=== PATIENT | male | born 1960 | race Caucasian/White ===

== ENCOUNTER 2017-01-11 07:30 | Observation (INO) ==
[2017-01-11] MEDS ORDERED: Ondansetron 4 MG/2 ML VIAL IVP PRN (11:55)
[2017-01-11] MEDS ORDERED: *HR* Promethazine 25 MG/ML VIAL IVP PRN (11:55)
--- NOTE | 2017-01-11 12:30 | General Surg History&Physical ---
Date of Encounter: 01/11/17 Time of Encounter: 12:20 Assessment and Plan (1) Symptomatic cholelithiasis Current Visit: Yes Status: Acute The assessment and plan as outlined above was discussed with the patient and/or family members who expressed understanding and agreement. All questions were answered. discussed with patient CT and lab results. His symptoms are consistent with symptomatic cholelithiasis. Will plan laparoscopic cholecystectomy with possible cholagiograms possible open risks and benefits discussed and he wishes to proceed. clears today, npo midnight cefoxitin morphine for pain control gi/dvt prophylaxis prn antihypertensives and antiemetics ivf hydration (2) Umbilical hernia without obstruction and without gangrene Current Visit: Yes Status: Acute The assessment and plan as outlined above was discussed with the patient and/or family members who expressed understanding and agreement. All questions were answered. discussed with patient he has an umbilical hernia, he is aware, will plan primary repair umbilical hernia, risks and benefits discussed including recurrence (3) Elevated liver enzymes Current Visit: Yes Status: Acute The assessment and plan as outlined above was discussed with the patient and/or family members who expressed understanding and agreement. All questions were answered. will repeat enzymes in am History of Present Illness Chief complaint: abdominal pain HPI: Mr. Galvan is a 56 year old male with a month and half epigastric pain, sharp and intermittent. Denies heartburn or reflux. Yesterday evening as patient went to bed he had sharp epigastric pain and nausea. No emesis. The pain became unbearable this morning and he presented to [place] [facility] where a CT scan was done showing gallstones and perhaps mild pericholecystic fluid. WBC normal but T bili 1.5 and ast/alt and alk phos were elevated as well. He denies diarrhea. Pain is improved with morphine. 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) Psychiatric history: anxiety, depression - Past Surgical History Surgical History: arthroscopy ( bilateral knees), orthopedic, other (right rotator cuff repair), other (PEG (removed), left neck lymph node biopsy, left tonsillectomy) - Social History Smoking Status: Never smoker Smokeless Tobacco Status: No Alcohol use: none Drug use: none Current living situation: Home - Independent, With Family - Family History Father Living Status: Hx Family Cardiac Disorders: Yes (OK) Hx Family Cancer: Yes (prostate & "back melanoma") Hx Family Endocrine Disorder: Yes (diabetic) Hx Family Medical Disorders: Yes (hepatitis C) Mother Living Status: Hx Family Cancer: Yes (lung) Medications and Allergies Meloxicam [Mobic] 15 mg PO DAILY #15 tablet 05/06/16 [Rx] Allergies Hydromorphone [From Dilaudid] Adverse Reaction (Verified 05/06/16 10:46) Itching Review of Systems All systems PM: reviewed and no additional remarkable complaints except as stated All systems PM: A 10-system review of systems was performed and is negative for pertinent findings except as documented above in the HPI. General Surgery Exam Initial Vital Signs Temp Pulse Resp BP Pulse Ox 97.6 F 68 17 157/91 95 01/11/17 09:10 01/11/17 09:10 01/11/17 09:10 01/11/17 09:10 01/11/17 09:10 - General physical appearance well developed, well nourished, no distress, moderate pain - Eyes PERRL, normal ocular movement - ENT normal mucosa, atraumatic, normocephalic - Neck trachea midline - Respiratory normal expansion, clear to auscultation - Cardiovascular Cardiovascular exam: Present: RRR, no murmurs/rubs/gallops - Abdomen Abdomen general surgery: Present: bowel sounds present, soft, tender ( epigastric and RUQ, no rebound or guarding, peg site scare LUQ) - Integumentary Integumentary general surgery: Present: warm and dry, no abnormal pigmentation - Neurologic Present: CN 2-12 grossly intact, normal coordination, normal sensation - Musculoskeletal Present: normal posture - Psychiatric Psychiatric general surgery: Present: A&Ox3, speech is normal Results - Labs labs reviewed from [place]: CBC, BMP, LFTs Vital Signs Temp Pulse Resp BP Pulse Ox 01/11/17 11:18 97.8 F 68 16 147/83 99 01/11/17 09:10 97.6 F 68 17 157/91 95 Intake and Output 01/10/17 01/11/17 01/11/17 23:59 07:59 15:59 Other: Weight 88.451 kg Patient Weight 01/11/17 23:59 Weight 88.451 kg - Imaging CT scan - abdomen: report reviewed, image reviewed CT scan - pelvis: report reviewed, image reviewed
[2017-01-11] MEDS: 0.9 % Sodium Chloride 1,000 ML IVC SCH ×2 (12:31→23:34)
[2017-01-11] MEDS: *HR* Morphine 2 MG/ML SYRINGE IVP PRN ×2 (14:58→21:32)
[2017-01-11] MEDS: ceFAZolin 2,000 MG in D5% in Water 100 ML IVPB SCH ×2 (15:02→23:36)
[2017-01-12] MEDS: *HR* Morphine 2 MG/ML SYRINGE IVP PRN ×6 (03:00→21:02)
[2017-01-12 04:28] LABS: Basophils % 0.3 %; Eosinophils # 0.1 K/mcL (0.0-0.6); Eosinophils % 3.4 %; Hematocrit 33.6 % (37.5-50.1); Hemoglobin 11.9 g/dL (12.9-16.9); Immature Granulocytes % 0.3 % (0-4); Lymphocytes # 0.8 K/mcL (0.6-4.6); Lymphocytes % 20.1 %; Mean Corpuscular HGB Conc 35.4 g/dL (31.6-35.5); Mean Corpuscular Hemoglobin 31.6 pg (28.0-33.3); Mean Corpuscular Volume 89.4 fL (83.0-100.0); Monocytes # 0.4 K/mcL (0.0-1.3); Monocytes % 9.4 %; Neutrophils # 2.6 K/mcL (1.6-8.9); Platelet Count 139 K/mcL (140-400); Red Blood Count 3.76 M/mcL (4.19-5.50); Red Cell Distribution Width 13.2 % (11.5-14.5); Segmented Neutrophils % 66.5 %
[2017-01-12 04:48] LABS: Alanine Aminotransferase 127 Units/L (0-55); Albumin 3.4 g/dL (3.5-5.0); Albumin/Globulin Ratio 1.2 (1.1-2.2); Alkaline Phosphatase 124 Units/L (38-126); Aspartate Amino Transferase 60 Units/L (5-34); BUN/Creatinine Ratio 13 (6-26); Bilirubin,Direct 0.4 mg/dL (0.0-0.5); Bilirubin,Indirect 0.7 mg/dL (0.0-1.2); Bilirubin,Total 1.1 mg/dL (0.2-1.2); Blood Urea Nitrogen 15 mg/dL (8-26); Calcium 8.4 mg/dL (8.6-10.8); Carbon Dioxide 25 mEq/L (19-29); Chloride 106 mEq/L (98-109); Globulin 2.8 g/dL (2.4-3.5); Glucose 91 mg/dL (70-99); Osmolality,Calculated 288 (280-300); Phosphorous 3.8 mg/dL (2.3-4.7); Potassium 3.8 mEq/L (3.5-4.5); Sodium 139 mEq/L (136-145); Total Protein 6.2 g/dL (6.0-8.3); eGFR For African Americans > 60 (> 60); eGFR For Non-African Americans > 60 (> 60)
[2017-01-12] MEDS: *HR* LORazepam 2 MG/ML VIAL IVP PRN ×2 (08:34→18:54)
[2017-01-12] MEDS ORDERED: Pantoprazole 40 MG VIAL IVP SCH (09:00)
--- NOTE | 2017-01-12 11:52 | Anesthesia Evaluation PreOp ---
Date of Encounter: 01/12/17 Time of Encounter: 15:27 - Past History Planned Operation: lap anne Cardiac History: Denies any Significant Hx Pulmonary History: Denies Any Significant HX [employer] History: Denies Any Significant HX Other Medical History: Other (left tonsillar squamous cell cancer with mets to left neck dx 2014) Anesthesia History: No Prior Anesthetic Complications, Past Anesthesia (Left tonsil and left lymph node dissection, bilateral AKS, RCR on right) Alcohol Use: none Drug use: none Medications and Allergies Atorvastatin [Lipitor] 10 mg PO HS 01/11/17 [History] Ciclopirox/Skin Cleanser No.28 [Ciclodan 0.77% Cream Kit] 1 appl TP BID [History] Allergies Hydromorphone [From Dilaudid] Adverse Reaction (Verified 01/11/17 13:52) Itching - Meds/Allergy Pre-op Review Medications Reviewed: Yes Allergies Reviewed: Yes (Dilaudid) Beta Blockers on Current Med List: No Anesthesia Results - Labs 01/12/17 02:54 01/12/17 02:54 Anesthesia Exam Selected Entries 01/12/17 10:50 Temperature 97.8 F Pulse Rate 68 Respiratory Rate 16 Blood Pressure 138/79 O2 Sat by Pulse Oximetry 98 Weight: 88 kg NPO (# of Hours): 8 - HEENT Pupil (Motor): EOMI Mallampati: II Teeth: Normal Oral Opening: Greater than 3 (left neck is scarred and fixed from XRT. Good ROM of Cervical spine) - [employer] LOC: Oriented [employer] Motor: Normal RUE, Normal LUE, Normal RLE, Normal LLE, Normal Face [employer] Sensory: Normal: RUE, LUE, RLE, LLE, Face - Cardiac Rhythm: Regular Murmur: None - Pulmonary Breath Sounds: bilateral Clear Respiratory Effort: Symmetrical Anesthesia Assess/Plan ASA Score: 3 Modified Bony Scale for Level of Consciousness: Cooperative, oriented, and tranquil Anesthetic Plan: General Monitoring Plan: Standard Monitors Recovery Plan: PACU (Discussed risks of GA, questions answered and agrees to proceed)
[2017-01-12] MEDS ORDERED: *HR* Midazolam HCl 2 MG/2 ML VIAL ONE (16:26)
[2017-01-12] MEDS ORDERED: Lidocaine -MPF 2% 2 ML VIAL ONE (16:26)
[2017-01-12] MEDS ORDERED: *HR* FentaNYL (PF) 100 MCG/2 ML VIAL ONE ×2 (16:26→16:32)
[2017-01-12] MEDS ORDERED: *HR* Propofol 200 MG/20 ML VIAL IVP ONE (16:26)
[2017-01-12] MEDS ORDERED: *HR* Succinylcholine 200 MG/10 ML VIAL IVP ONE (16:26)
[2017-01-12] MEDS ORDERED: Ondansetron 4 MG/2 ML VIAL IVP ONE (16:46)
--- NOTE | 2017-01-12 17:13 | Operative Note ---
Date of procedure: 01/12/17 Pre-op diagnosis: symptomatic cholelithiasis. umbilical hernia Post-op diagnosis: other (acute cholecystitis, incarcerated umbilical hernia) Procedure: Primary repair incarcerated umbilical hernia, laparoscopic cholecystectomy Complications: none immediate Anesthesia: GETA, local Local Anesthetics: 0.5% Sensorcaine HCL SubQ (cc) (30) Surgeon: Anne Farias Top Dyeing Machine Loader: Neeru Fuentes Estimated blood loss (cc): 5 Specimen: gallbladder and contents Condition: stable Disposition: PACU Procedure in Detail: The patient was brought into the operating suite and placed supine on the operating table. Sign-in was performed and everyone was in agreement. Anesthesia was induced and patient was endotracheally intubated by anesthesia without incident and they also placed an OG tube. The abdomen was prepped and draped in the usual sterile fashion. A timeout was performed again everyone was in agreement. An umbilical incision was made through the skin into the subcutaneous tissue with an 11 blade. Towel clamps were placed on either side of the umbilicus for retraction. The incarcerated preperitoneal fat was dissected free from the fascia with gentle blunt dissection and the herniated fat was reduced into the abdomen. A regis was placed throught the fascia and entered the abdomen easily. The 5mm X-josefina trocar was placed into the abdomen and insufflation commenced and the abdomen was insufflated. The area under entry was visualized was no bleeding and no apparent bowel injury. A 5 mm subxiphoid port was placed under direct visualization after first incising the skin with an 11 blade. A right upper quadrant subcostal position midclavicular line 5 mm port was placed under direct visualization after first incising skin with 11 blade. The laparoscope was placed in this and we exchanged the supraumbilical port for a 12 mm port under direct visualization. The last 5 mm port was placed in the right upper quadrant subcostal position anterior axillary line after first incising the skin with an 11 blade. The patient was placed in steep reverse Trendelenburg left side down position. The dome of the gallbladder was grasped and retracted cephalad. Omental adhesions to the body and infundibulum of the gallbladder were taken down bluntly with the [place]. The infundibulum was grasped and retracted laterally. Using the [place] we dissected out the cystic duct and cystic artery. There was some bleeding from the crossing vessel from the duct to the artery which was stopped with application of the cystic duct clip. Three 5 mm hemoclips were placed distally on the cystic duct one proximally and it was transected with curved scissors. The cystic artery was doubly clipped proximally, once distally and transected with curved scissors. The gallbladder was removed off the cystic plate with the Bovie. Any bleeding points were stopped with the Bovie. The gallbladder was placed in a laparoscopic Endo Catch bag and removed via the supraumbilical incision site. The inferior edge of the liver was bluntly retracted cephalad and the cystic plate was copiously irrigated with sterile saline. There was no bleeding or apparent bile leak from the cystic plate and the clips on the cystic artery and duct were intact. All irrigation was suctioned free from the abdomen. All insufflation was suctioned free from the abdomen and the ports removed. The abdominal wall at the umbilical incision/hernia site was closed with two 0 Vicryl [id number] stitches. 30 mL of 0.5% Marcaine was injected subcutaneously at the 4 port sites. The skin at the three 5 mm port sites were closed with 4-0 Monocryl interrupted subcuticular stitches. The skin at the supraumbilical incision site was closed with a 4-0 Monocryl running subcuticular stitch. Steri-Strips were applied to all wounds. The patient was awoken in the operating suite having tolerated the procedure well and were taken to PACU in stable condition after all lap and ensuring counts were correct at the end of the case.
--- NOTE | 2017-01-12 18:09 | Anesthesia Evaluation Post Op ---
Date of Encounter: 01/12/17 Time of Encounter: 18:08 - Vital Signs Vital Signs: Vital Signs/O2 Sat, Most Current Temp Pulse Resp BP Pulse Ox 98.1 F 71 16 160/82 100 01/12/17 17:50 01/12/17 18:00 01/12/17 18:00 01/12/17 18:00 01/12/17 18:00 - Lungs Lungs: Clear Ascult./Percussion - Airway Airway: Non-obstructed - Cardiovascular Regular Rate - Mental Status Mental Status: Alert & Oriented, Answers Appropriately - Pain Pain Scale: 6 Pain Scale used: Numeric (1 - 10) - Nausea Vomiting Nausea Vomiting: Not Present - Hydration Hydration: Tolerates oral liquids, Has not voided - Discharge PostOp Status: Transfer Patient to floor
[2017-01-12] MEDS ORDERED: Ondansetron 4 MG/2 ML VIAL IVP PRN (19:03)
[2017-01-12] MEDS ORDERED: *HR* OxyCODONE/APAP 5/325 TABLET PO PRN (19:03)
[2017-01-12] MEDS ORDERED: *HR* Promethazine 25 MG/ML VIAL IVP PRN (19:03)
[2017-01-12] MEDS ORDERED: 0.9 % Sodium Chloride 1,000 ML IVC SCH (19:03)
[2017-01-12] MEDS ORDERED: *HR* LORazepam 2 MG/ML VIAL IVP PRN (19:03)
[2017-01-12] MEDS: 0.9 % Sodium Chloride 1,000 ML IVC SCH ×2 (19:29→19:30)
[2017-01-13] MEDS: *HR* Morphine 2 MG/ML SYRINGE IVP PRN (01:05)
[2017-01-13 05:04] LABS: Basophils % 0.2 %; Hematocrit 33.1 % (37.5-50.1); Hemoglobin 11.9 g/dL (12.9-16.9); Immature Granulocytes % 0.3 % (0-4); Lymphocytes # 0.5 K/mcL (0.6-4.6); Lymphocytes % 9.3 %; Mean Corpuscular Hemoglobin 31.5 pg (28.0-33.3); Mean Corpuscular Volume 87.6 fL (83.0-100.0); Monocytes # 0.4 K/mcL (0.0-1.3); Neutrophils # 4.9 K/mcL (1.6-8.9); Platelet Count 143 K/mcL (140-400); Red Blood Count 3.78 M/mcL (4.19-5.50); Red Cell Distribution Width 12.7 % (11.5-14.5); Segmented Neutrophils % 84.2 %
[2017-01-13 05:13] LABS: Albumin 3.3 g/dL (3.5-5.0); Albumin/Globulin Ratio 1.1 (1.1-2.2); Bilirubin,Direct 0.4 mg/dL (0.0-0.5); Bilirubin,Indirect 0.7 mg/dL (0.0-1.2); Bilirubin,Total 1.1 mg/dL (0.2-1.2); Total Protein 6.3 g/dL (6.0-8.3)
[2017-01-13] MEDS ORDERED: Pantoprazole 40 MG VIAL IVP SCH (07:30)
--- NOTE | 2017-01-13 07:33 | Discharge Summary ---
Date of Encounter: 01/13/17 Time of Encounter: 07:32 - Discharge Diagnosis (1) Symptomatic cholelithiasis Priority: Primary Status: Acute (2) Umbilical hernia without obstruction and without gangrene Priority: Primary Status: Acute (3) Elevated liver enzymes Priority: Primary Status: Acute - Discharge Medications Prescriptions: OxyCODONE/APAP 5/325 [Percocet 5/325 MG] 1 each PO Q4HR PRN #30 tablet PRN Reason: Pain Ibuprofen 800 mg PO Q8HR PRN #30 tablet PRN Reason: Pain Docusate [Colace] 100 mg PO BID #20 capsule Home Medications: Atorvastatin [Lipitor] 10 mg PO HS 01/11/17 [History] Ciclopirox/Skin Cleanser No.28 [Ciclodan 0.77% Cream Kit] 1 appl TP BID [History] Docusate [Colace] 100 mg PO BID #20 capsule 01/13/17 [Rx] Ibuprofen 800 mg PO Q8HR PRN #30 tablet 01/13/17 [Rx] OxyCODONE/APAP 5/325 [Percocet 5/325 MG] 1 each PO Q4HR PRN #30 tablet 01/13/17 [Rx] Allergies/Adverse Reactions: Allergies Hydromorphone [From Dilaudid] Adverse Reaction (Verified 01/11/17 13:52) Itching General Surgery Exam Initial Vital Signs Temp Pulse Resp BP Pulse Ox 97.6 F 68 17 157/91 95 01/11/17 09:10 01/11/17 09:10 01/11/17 09:10 01/11/17 09:10 01/11/17 09:10 - General physical appearance well developed, well nourished, no distress, moderate pain - ENT normal mucosa, atraumatic, normocephalic - Neck no masses, trachea midline - Respiratory normal expansion, normal respiratory effort, clear to auscultation - Cardiovascular Cardiovascular exam: Present: RRR, no murmurs/rubs/gallops - Abdomen Abdomen general surgery: Present: bowel sounds present, soft Abdominal Tenderness: Present: diffusely (normal post op pain) - Incision Incision: Present: clean and dry - Integumentary Integumentary general surgery: Present: warm and dry, no abnormal pigmentation. Absent: diaphoresis, rash - Neurologic Present: CN 2-12 grossly intact, normal coordination, normal sensation - Psychiatric Psychiatric general surgery: Present: appropriate, oriented to person, oriented to place, oriented to time, speech is normal, memory intact Date of admission: 01/11/17 08:52 Primary care physician: Corbin Salas Discharging clinician: Anne Farias Anticipated date of discharge: 01/13/17 - Patient Status Disposition: Home, Self-Care Condition: Good Overall status at discharge: patient is progressing back to baseline - Discharge Instructions Follow Up With: Corbin Salas DO [Primary Care Provider] - Anne Farias MD [Partnered Physician] - (2 weeks) Additional Instructions: Surgical Instructions: 1. May shower today. No tub bath for 2 weeks. 2. Wash incisions with soap and water and pat dry daily. 3. No lifting more than 20 lbs for [address] off narcotics for over 24 hours and able to react safely in the car. 5. May climb stairs. - Diet and Activity Activity: other (Per instructions) Diet: advance to your usual diet - Hospital Course Hospital course: Mr. Galvan is a 56 year old male who presented to the hospital on 01/11/2017 complaining of one month history of epigastric pain that became sharp prior to admission. He presented to the [place] [facility] where a CAT scan was done revealing gallstones and mild pericholecystic fluid. The PVC was normal, T bili was elevated at 1.5. AST, ALT and alk phos were also elevated. The patient was admitted for surgery. He was provided with preoperative antibiotics of cefoxitin. The patient also had an umbilical hernia and it was discussed to perform a primary repair of the umbilical hernia as well. On 01/12 a laparoscopic cholecystectomy and primary repair of incarcerated umbilical hernia was performed by Dr. Demi Farias. The procedure was performed without complication and the patient tolerated the procedure well. The patient will be discharged in stable condition with follow-up with Dr. Farias in 2 weeks. He will be provided with a prescription for, percocet, ibuprofen 800mg and colace at discharge and all surgical discharge instructions were provided to the patient. - Time Spent with Patient Total time spent providing and/or coordinating discharge services: Less than 30 minutes Labs on day of discharge: Labs from last 24 hours 01/13/17 01/13/17 01/12/17 04:32 04:32 11:28 WBC 5.8 D RBC 3.78 L Hgb 11.9 L Hct 33.1 L MCV 87.6 MCH 31.5 MCHC 36.0 H RDW 12.7 Plt Count 143 MPV 10.0 Immature Gran % 0.3 Seg Neutrophils % 84.2 Lymphocytes % 9.3 Monocytes % 6.0 Eosinophils % 0.0 Basophils % 0.2 Neutrophils # 4.9 Lymphocytes # 0.5 L Monocytes # 0.4 Eosinophils # 0.0 Basophils # 0.0 POC Glucose 86 Total Bilirubin 1.1 Direct Bilirubin 0.4 Indirect Bilirubin 0.7 AST 60 H ALT 117 H Alkaline Phosphatase 111 Serum Total Protein 6.3 Albumin 3.3 L Globulin 3.0 Albumin/Globulin Ratio 1.1 01/12/17 07:51 WBC RBC Hgb Hct MCV MCH MCHC RDW Plt Count MPV Immature Gran % Seg Neutrophils % Lymphocytes % Monocytes % Eosinophils % Basophils % Neutrophils # Lymphocytes # Monocytes # Eosinophils # Basophils # POC Glucose 116 H Total Bilirubin Direct Bilirubin Indirect Bilirubin AST ALT Alkaline Phosphatase Serum Total Protein Albumin Globulin Albumin/Globulin Ratio
[2017-01-13 08:02] VITALS: BP 158/84
== END 2017-01-13 11:59 | disposition home or self-care (01) ==
LOC: 3NENU → 3ANU 01-12 07:16
PROVIDERS: ADMIT Surgery; ATTEND Surgery

== ENCOUNTER 2021-04-06 05:49 | Observation (INO) ==
[2021-04-06] MEDS ORDERED: Aspirin 81 MG TAB.CHEW PO ONE (06:25)
[2021-04-06] MEDS ORDERED: Nitroglycerin 0.4 MG TAB.SUBL SL PRN (06:25)
[2021-04-06 06:35] LABS: Basophils # 0.1 K/mcL (0.0-0.2); Basophils % 0.6 %; Eosinophils # 0.3 K/mcL (0.0-0.6); Eosinophils % 1.9 %; Hematocrit 42.2 % (37.5-50.1); Hemoglobin 14.4 g/dL (12.9-16.9); Immature Granulocytes % 0.2 % (0-4); Lymphocytes # 3.2 K/mcL (0.6-4.6); Lymphocytes % 24.7 %; Mean Corpuscular HGB Conc 34.1 g/dL (31.6-35.5); Mean Corpuscular Hemoglobin 31.6 pg (28.0-33.3); Mean Corpuscular Volume 92.5 fL (83.0-100.0); Monocytes % 7.7 %; Neutrophils # 8.4 K/mcL (1.6-8.9); Platelet Count 504 K/mcL (140-400); Red Blood Count 4.56 M/mcL (4.19-5.50); Red Cell Distribution Width 13.7 % (11.5-14.5); Segmented Neutrophils % 64.9 %; White Blood Count 12.9 K/mcL (4.3-11.1)
[2021-04-06 07:01] LABS: BUN/Creatinine Ratio 19 (6-26); Blood Urea Nitrogen 23 mg/dL (8-23); Calcium 9.1 mg/dL (8.6-10.3); Carbon Dioxide 23 mEq/L (23-29); Chloride 103 mEq/L (98-107); Glucose 181 mg/dL (70-105); Lipase 27 Units/L (11-82); Osmolality,Calculated 282 (280-300); Potassium 5.4 mEq/L (3.5-5.1); Sodium 132 mEq/L (136-145); Troponin I < 0.03 ng/mL (< 0.04); eGFR For African Americans > 60 (> 60); eGFR For Non-African Americans > 60 (> 60)
[2021-04-06] MEDS ORDERED: Regadenoson 0.4 MG/5 ML SYRINGE IVP ONE ×3 (07:34→12:57)
[2021-04-06] MEDS ORDERED: Ondansetron 4 MG/2 ML VIAL IVP PRN (07:39)
[2021-04-06] MEDS ORDERED: Naloxone 0.4 MG/ML INJ IVP PRN (07:39)
[2021-04-06] MEDS ORDERED: Acetaminophen 325 MG TABLET PO PRN (07:39)
[2021-04-06] MEDS ORDERED: D5% in Water 1,000 ML IVC PRN (08:15)
[2021-04-06] MEDS ORDERED: Dextrose Gel 15 GM/37.5 ML TUBE PO PRN ×2 (08:15)
[2021-04-06] MEDS ORDERED: *HR* Dextrose 50 % in Water (Vial) 50 ML VIAL IVP PRN (08:15)
[2021-04-06 10:49] LABS: Estimated Average Glucose 203 mg/dl; Hemoglobin A1C 8.7 %
[2021-04-06 11:03] LABS: Chol/HDL Ratio 5.3 (0-4.9)
[2021-04-06] MEDS ORDERED: Insulin LISPRO 300 UNITS/3 ML VIAL SUBQ SCH (11:30)
[2021-04-06 11:57] VITALS: BP 138/74; PULSE 69; TEMP 97.5; O2SAT 97
[2021-04-07] MEDS ORDERED: *HR* Enoxaparin 40 MG/0.4 ML SYRINGE SQ SCH (06:00)
== END 2021-04-06 15:29 | disposition home or self-care (01) ==
LOC: EMEROOARM 05:49 → 3ANU 05:49
PROVIDERS: ADMIT Internal Medicine; ATTEND Internal Medicine